=== PATIENT | female | born 1985 | race Caucasian/White ===

== ENCOUNTER 2022-11-03 13:34 | Outpatient (CLI) | payer OTHER, SELFPAY | END 2022-11-03 13:35 | disposition home or self-care (01) | PROVIDERS: PCP Physician Assistant Medical; Visit Provider Family Medicine | DX: G43.909 Migraine, unspecified, not intractable, without status migrainosus (principal) | CPT/HCPCS: 80053; 82306; 82607 ==

== ENCOUNTER 2022-11-11 12:50 | Outpatient (CLI) | payer OTHER, SELFPAY ==
--- NOTE | 2022-11-11 13:00 | CRLHL7_ITS ---
For Patients: As a result of the Cures Act, medical imaging exams and procedure reports are released immediately into your electronic medical record. You may view this report before your referring provider. If you have questions, please contact your health care provider. INDICATION: Migraine headaches. COMPARISON: None. TECHNIQUE: Noncontrast CT head. FINDINGS: Normal brain parenchymal morphology. No acute intracranial hemorrhage, acute infarct, mass effect, or fracture. No midline shift. No abnormal ventricular dilatation. Normal calvarium and skull base. Visualized paranasal sinuses mastoid air cells are clear. Normal orbits bilaterally. IMPRESSION: 1. No acute intracranial abnormality 2. Normal brain parenchymal morphology Please note that all CT scans at this facility use dose modulation, iterative reconstruction, and/or weight-based dosing when appropriate to reduce radiation dose to as low as reasonably achievable. Dictated by Demarco Rios MD @ 11/12/2022 9:01:03 AM (Electronically Signed)
--- NOTE | 2022-11-11 13:00 | CRLHL7_ITS ---
For Patients: As a result of the Century Cures Act, medical imaging exams and procedure reports are released immediately into your electronic medical record. You may view this report before your referring provider. If you have questions, please contact your health care provider. Indication : Migraine headaches Comparison : None Technique : Noncontrast CT cervical spine Findings : Normal vertebral body facet alignment. No fractures. No vertebral body loss of height. No spondylolisthesis. No prevertebral soft tissue swelling. C1-2: No spinal canal narrowing. C2-3: No spinal canal or neural foraminal narrowing. C3-4: No spinal canal or neural foraminal narrowing. C4-5: No spinal canal or neural foraminal narrowing. C5-6: No spinal canal or neural foraminal narrowing. C6-7: Posterior disc bulge. No spinal canal or neural foraminal narrowing. C7-T1: No spinal canal or neural foraminal narrowing. Lung apices are clear. IMPRESSION: 1. Normal alignment. No fractures. 2. No prevertebral soft tissue swelling. 3. No spinal canal or neural foraminal narrowing at all levels. Please note that all CT scans at this facility use dose modulation, iterative reconstruction, and/or weight-based dosing when appropriate to reduce radiation dose to as low as reasonably achievable. Dictated by Demarco Rios MD @ 11/12/2022 9:05:20 AM (Electronically Signed)
== END 2022-11-11 12:51 | disposition home or self-care (01) ==
PROVIDERS: PCP Physician Assistant Medical; Visit Provider Family Medicine
DX: G43.909 Migraine, unspecified, not intractable, without status migrainosus (principal)
CPT/HCPCS: 70450; 72125

== ENCOUNTER 2023-07-22 15:43 | Outpatient (CLI) | payer OTHER, SELFPAY ==
--- NOTE | 2023-07-22 16:00 | US_ITS ---
Patient: DILLON GONSALEZ Facility:?[facility] Patient ID:?[id number] Site Patient ID:?[id number]. Site :?[id number] Study:?US-Thyroid -07/22/2023 4:39:03 PM Ordering Physician:Isabel Tejada Final Report: INDICATION: Thyroid fullness COMPARISON: None available. FINDINGS: Ultrasound examination of the thyroid gland was performed with a high-resolution linear transducer. The thyroid shows no sign of mass or contour abnormality. There is no sign of solid or cystic nodules. The right lobe measures 3.7 x 0.9 x 1.5 cm and the left lobe measures 3.0 x 0.7 x 1.3 cm. The patient describes fullness of the throat superior to the thyroid when swallowing. Ultrasound examination of these regions with the high-resolution linear transducer shows only normal-appearing bilateral submandibular glands. There is no sign of any mass, adenopathy, or cyst. IMPRESSION: 1. Normal ultrasound examination of the thyroid gland with no sign of solid or cystic nodules. No sign of enlargement of either lobe of the thyroid. 2. Area of fullness of the throat superior to the thyroid gland is seen to have only normal-appearing submandibular glands. Dictated by Eduardo Mahoney MD @ 07/23/2023 10:14:09 PM Signed by:?Eduardo Mahoney MD @07/23/2023 10:14:09 PM (Electronic Signature)
== END 2023-07-22 15:44 | disposition home or self-care (01) ==
LOC: US 15:43
PROVIDERS: PCP Physician Assistant Medical; Visit Provider Physician Assistant Medical
DX: E07.89 Other specified disorders of thyroid (principal)
CPT/HCPCS: 76536

== ENCOUNTER 2023-10-05 15:12 | Outpatient (CLI) | payer OTHER, SELFPAY | END 2023-10-05 15:13 | disposition home or self-care (01) | PROVIDERS: PCP Physician Assistant Medical; Visit Provider Emergency Medicine | DX: R53.83 Other fatigue (principal); F33.9 Major depressive disorder, recurrent, unspecified | CPT/HCPCS: 80053; 82728; 84443 ==

== ENCOUNTER 2024-10-10 10:32 | Outpatient (CLI) | payer OTHER, SELFPAY | END 2024-10-10 10:33 | disposition home or self-care (01) | LOC: FRMREF 10:38 | PROVIDERS: PCP Physician Assistant Medical; Visit Provider Physician Assistant Medical | DX: N30.00 Acute cystitis without hematuria (principal); B95.7 Other staphylococcus as the cause of diseases classified elsewhere | CPT/HCPCS: 87086; 87186 ==

== ENCOUNTER 2025-01-10 10:59 | Outpatient (CLI) | payer OTHER, SELFPAY | END 2025-01-10 11:00 | disposition home or self-care (01) | LOC: FRMREF 11:00 | PROVIDERS: PCP Physician Assistant Medical; Visit Provider Physician Assistant Medical | DX: B07.9 Viral wart, unspecified (principal) | CPT/HCPCS: 82180; 82306; 82607; 82728; 84590; 84630 ==

== ENCOUNTER 2025-01-11 11:34 | Outpatient (CLI) | payer OTHER, SELFPAY | END 2025-01-11 11:35 | disposition home or self-care (01) | LOC: NFLDREF 01-14 20:23 | PROVIDERS: PCP Physician Assistant Medical; Referring Provider Physician Assistant Medical; Visit Provider Physician Assistant Medical | DX: B07.9 Viral wart, unspecified (principal) | CPT/HCPCS: 84630 ==